=== PATIENT | female | born 1960 | race Caucasian/White ===

== ENCOUNTER → 2023-07-22 | Outpatient (CLI) | payer BC | LOC: MAMMO 15:06 | DX: Z12.31 Encounter for screening mammogram for malignant neoplasm of breast (principal) ==

== ENCOUNTER → 2023-10-13 | Day surgery (SDC) | payer BC | END | disposition home or self-care (01) | LOC: MSO 12:42 | DX: H25.11 Age-related nuclear cataract, right eye (principal) | CPT/HCPCS: 00142; J0171; J2250; V2632 ==

== ENCOUNTER → 2024-10-26 | Outpatient (CLI) | payer MEDICARE, BC | LOC: RAD 09:51 | DX: N93.9 Abnormal uterine and vaginal bleeding, unspecified (principal) ==